=== PATIENT | female | born 1980 | race Hispanic/Latino ===

== ENCOUNTER 2016-12-21 13:34 | Emergency (ER) | payer SELFPAY ==
[~2016-12-21] VITALS: Ht 157.5 cm; Wt 148.0 kg
[2016-12-21] MEDS ORDERED: ZITHROMAX250 MG PO (14:09)
[2016-12-21] MEDS ORDERED: TESSALON PER100 MG PO (14:09)
[2016-12-21 14:19] VITALS: BP 125/77
== END 2016-12-21 14:28 | disposition home or self-care (01) | DRG 203 ==
LOC: ED 13:34
DX: J40 Bronchitis, not specified as acute or chronic (principal); I10 Essential (primary) hypertension; E11.9 Type 2 diabetes mellitus without complications

== ENCOUNTER 2017-05-05 11:39 | Emergency (ER) | payer SELFPAY ==
[~2017-05-05] VITALS: Ht 157.5 cm; Wt 145.0 kg
[~2017-05-05 11:39] MED LIST: TESSALON PER100 MG PO; ZITHROMAX250 MG PO
[2017-05-05] MEDS ORDERED: METFORMIN500 MG PO (12:01)
[2017-05-05] MEDS ORDERED: AMLODIPINE5 MG PO (12:02)
[2017-05-05] MEDS ORDERED: LISINOP/HCTZ1 TAB PO (12:09)
[2017-05-05] MEDS ORDERED: LEVEMIR100 UNIT/M SC (12:10)
[2017-05-05 12:46] LABS: URINE BILIRUBIN - DIPSTICK NEGATIVE (NEGATIVE); URINE BLOOD DIPSTICK LARGE (NEGATIVE); URINE COLOR YELLOW; URINE GLUCOSE - DIPSTICK NEGATIVE (NEGATIVE); URINE KETONE NEGATIVE (NEGATIVE); URINE LEUK ESTERASE NEGATIVE (NEGATIVE); URINE NITRITE - DIPSTICK NEGATIVE (Negative); URINE PROTEIN - DIPSTICK TRACE mg/dL (NEG-TRACE); URINE UROBILINOGEN - DIPSTICK 0.2 E.U./dL (0.2)
[2017-05-05 12:50] LABS: URINE CLARITY TURBID
[2017-05-05 12:54] LABS: URINE RBC TNTC RBC/hpf (0-5); URINE SQUAMOUS EPITHELIAL CELL FEW EPI/hpf (0-FEW)
[2017-05-05] MEDS ORDERED: MIRALAX3350 N1 PO (14:21)
[2017-05-05 14:30] VITALS: BP 150/79
== END 2017-05-05 14:37 | disposition home or self-care (01) | DRG 392 ==
LOC: ED 11:39
PROVIDERS: Emergency Medicine
DX: K59.00 Constipation, unspecified (principal)

== ENCOUNTER 2017-09-29 20:50 | Emergency (ER) | payer SELFPAY ==
[~2017-09-29] VITALS: Ht 157.5 cm; Wt 144.0 kg
[~2017-09-29 20:50] MED LIST changes: +AMLODIPINE5 MG PO; +LEVEMIR100 UNIT/M SC; +LISINOP/HCTZ1 TAB PO; +METFORMIN500 MG PO; +MIRALAX3350 N1 PO
[2017-09-29 23:25] LABS: HEMATOCRIT 34.5 % (37.0-47.0); HEMOGLOBIN 11.5 g/dl (12.0-16.0); IMMATURE GRANULOCYTES 0.5 % (0.0-1.0); MEAN CELL VOLUME 79.5 fL CALC (80.0-100.0); MEAN CORPUSCULAR HGB 26.5 pG CALC (26.0-32.0); MEAN CORPUSCULAR HGB CONC 33.3 g/L CALC (32.0-36.0); NEUT# 6.86 thou/uL (2.00-7.15); RED BLOOD COUNT 4.34 mill/uL (4.20-5.60); RED CELL DISTRI WIDTH 14.4 % (11.5-15.5)
[2017-09-29 23:26] LABS: URINE BILIRUBIN - DIPSTICK NEGATIVE (NEGATIVE); URINE BLOOD DIPSTICK NEGATIVE (NEGATIVE); URINE COLOR YELLOW; URINE GLUCOSE - DIPSTICK >=1000 mg/dL (NEGATIVE); URINE KETONE NEGATIVE (NEGATIVE); URINE LEUK ESTERASE NEGATIVE (NEGATIVE); URINE NITRITE - DIPSTICK NEGATIVE (Negative); URINE PROTEIN - DIPSTICK NEGATIVE (NEG-TRACE); URINE SPECIFIC GRAVITY 1.015; URINE UROBILINOGEN - DIPSTICK 0.2 E.U./dL (0.2)
[2017-09-29 23:32] LABS: URINE CLARITY CLEAR
[2017-09-29 23:39] LABS: ALBUMIN 3.5 g/dL (3.2-5.0); ALKALINE PHOSPHATASE 107 u/l (38-126); AMYLASE 59 u/l (30-110); ANION GAP 15 (6-22 (CALC)); BILIRUBIN, TOTAL 0.3 mg/dL (0.0-1.4); BUN 10 mg/dL (7-17); BUN/CREATININE RATIO 18 (12-20 (CALC)); CARBON DIOXIDE 21 mmol/l (22-30); CHLORIDE 102 mmol/l (95-108); CREATININE 0.6 mg/dL (0.5-1.0); GFR > 60 ML/MIN (>=60 (CALC)); GFR FOR AFR.AMER. > 60 ML/MIN (>=60 (CALC)); LIPASE 97 u/l (23-300); POTASSIUM 4.1 mmol/l (3.5-5.1); SGOT/AST 17 u/l (14-36); SGPT/ALT 23 u/l (9-52); SODIUM 134 mmol/l (137-146); TOTAL PROTEIN 6.8 g/dL (6.3-8.2)
[2017-09-30 02:50] VITALS: BP 109/59
[2017-09-30] MEDS ORDERED: VITA-NATAL PO (03:09)
== END 2017-09-30 03:20 | disposition home or self-care (01) | DRG 781 ==
LOC: ED 20:50
PROVIDERS: Emergency Medicine
DX: O24.312 Unspecified pre-existing diabetes mellitus in pregnancy, second trimester (principal); E11.65 Type 2 diabetes mellitus with hyperglycemia; R10.32 Left lower quadrant pain; Z79.4 Long term (current) use of insulin; Z3A.16 16 weeks gestation of pregnancy

== ENCOUNTER 2019-10-12 | Emergency (ER) | payer SELFPAY ==
[~2019-10-12] MED LIST changes: +VITA-NATAL PO
[2019-10-12 12:11] LABS: HEMOGLOBIN 12.8 g/dl (12.0-16.0); IMMATURE GRANULOCYTES 0.1 % (0.0-5.0); MEAN CELL VOLUME 77.4 fL CALC (80.0-100.0); MEAN CORPUSCULAR HGB 23.7 pG CALC (26.0-32.0); MEAN CORPUSCULAR HGB CONC 30.6 g/L CALC (32.0-36.0); NEUT# 4.67 thou/uL (2.00-7.15); RED BLOOD COUNT 5.4 mill/uL (4.20-5.60); RED CELL DISTRI WIDTH 15.8 % (11.5-15.5)
[2019-10-12 12:16] LABS: HEMATOCRIT 41.8 % (37.0-47.0)
[2019-10-12 12:23] LABS: URINE BILIRUBIN - DIPSTICK NEGATIVE (NEGATIVE); URINE BLOOD DIPSTICK NEGATIVE (NEGATIVE); URINE COLOR YELLOW; URINE GLUCOSE - DIPSTICK NEGATIVE (NEGATIVE); URINE KETONE NEGATIVE (NEGATIVE); URINE LEUK ESTERASE NEGATIVE (NEGATIVE); URINE NITRITE - DIPSTICK NEGATIVE (Negative); URINE PROTEIN - DIPSTICK NEGATIVE (NEG-TRACE); URINE UROBILINOGEN - DIPSTICK 0.2 E.U./dL (0.2)
[2019-10-12 12:52] LABS: ALBUMIN 3.6 g/dL (3.2-5.0); ALKALINE PHOSPHATASE 151 u/l (38-126); ANION GAP 9 (6-22 (CALC)); BILIRUBIN, TOTAL 0.5 mg/dL (0.0-1.4); BUN 12 mg/dL (7-17); BUN/CREATININE RATIO 22 (12-20 (CALC)); CARBON DIOXIDE 31 mmol/l (22-30); CHLORIDE 102 mmol/l (95-108); CREATININE 0.5 mg/dL (0.5-1.0); GFR > 60 ML/MIN (>=60 (CALC)); GFR FOR AFR.AMER. > 60 ML/MIN (>=60 (CALC)); LIPASE 116 u/l (23-300); SGOT/AST 38 u/l (14-36); SODIUM 138 mmol/l (137-146); TOTAL PROTEIN 7.1 g/dL (6.3-8.2)
[2019-10-12] MEDS ORDERED: LEVEMIR100 UNIT/M SC (13:48)
== END 2019-10-12 14:26 | disposition home or self-care (01) | DRG 392 ==
PROVIDERS: Family Medicine
DX: R10.31 Right lower quadrant pain (principal); R10.32 Left lower quadrant pain; E11.9 Type 2 diabetes mellitus without complications; I10 Essential (primary) hypertension; Z79.4 Long term (current) use of insulin
CPT/HCPCS: Q9967

== ENCOUNTER 2022-01-05 17:22 | Emergency (ER) | payer SELFPAY ==
[~2022-01-05] VITALS: Ht 157.5 cm; Wt 114.0 kg
[2022-01-05] MEDS ORDERED: AMOX/K CLAV875 M1 PO (19:33)
[2022-01-05 19:56] VITALS: BP 131/83
== END 2022-01-05 20:17 | disposition home or self-care (01) | DRG 605 ==
LOC: ED 17:22
DX: S60.572A Other superficial bite of hand of left hand, initial encounter (principal); I10 Essential (primary) hypertension; E11.9 Type 2 diabetes mellitus without complications; W54.0XXA Bitten by dog, initial encounter; Y92.009 Unspecified place in unspecified non-institutional (private) residence as the place of occurrence of the external cause; Z79.4 Long term (current) use of insulin